=== PATIENT | male | born 1990 ===

== ENCOUNTER 2020-11-09 11:59 | Emergency (ER) | payer OTHER ==
[~2020-11-09] VITALS: Ht 182.9 cm; Wt 112.0 kg
[2020-11-09 12:40] VITALS: TEMP 97.8
[2020-11-09 13:36] LABS: BASO % 0.5 % (0.0-2.0); EOS # 0.1 (0.0-0.7); EOS % 2.2 % (0-4.0); GRAN # 1.7 (1.4-6.5); GRAN % 42.7 % (42.2-75.2); HEMATOCRIT 44.7 % (42.0-52.0); HEMOGLOBIN 14.9 g/dl (13.5-18.0); LYMPH # 1.7 (1.2-3.4); LYMPH % 42.8 % (20.0-51.0); MEAN CELL VOLUME 83 fl (80.0-100.0); MEAN CORPUSCULAR HEMOGLOBIN 28 pg (27.0-31.0); MEAN CORPUSCULAR HGB CONC 33 g/dl (33.0-37.0); MEAN PLATELET VOLUME 9.4 fl (7.4-10.4); MONO # 0.5 (0.1-0.6); MONO % 11.6 % (1.7-9.3); PLATELET COUNT 224 K/mm3 (130-400); RED BLOOD COUNT 5.38 M/mm3 (4.20-5.60); REDCELL DISTRIBUTION WIDTH-CV 14.4 % (11.5-14.5)
[2020-11-09 13:54] LABS: ALBUMIN 4.6 gm/dL (3.5-5.0); BILIRUBIN,TOTAL 0.8 mg/dL (0.0-1.0); C-REACTIVE PROTEIN 1.2 mg/dL (0.0-0.9); CALCIUM 9.1 mg/dL (8.4-10.2); CREATININE, serum 0.7 (0.66-1.25); TOTAL PROTEIN 8.7 gm/dL (6.4-8.2)
[2020-11-09] MEDS ORDERED: ATIVAN 1MG T1 MG/TAB PO (15:01)
[2020-11-09 15:09] VITALS: BP 130/78; PULSE 87
== END 2020-11-09 15:11 | disposition home or self-care (01) ==
LOC: COL.ER 11:59
PROVIDERS: Physician Assistant
DX: F41.9 Anxiety disorder, unspecified (principal); F10.10 Alcohol abuse, uncomplicated
CPT/HCPCS: J2060; J2405; J7030